=== PATIENT | male | born 1930 | race Two or more races ===

== ENCOUNTER 2017-04-19 16:58 | Inpatient (IN) | payer MEDICARE ==
[2017-04-19 18:25] LABS: AUTOMATED NEUTROPHIL # 5.1 TH/MM3 (1.8-7.7); BASOPHIL % 0.3 % (0.0-2.0); HEMATOCRIT 35.4 % (39.0-51.0); HEMOGLOBIN 12.8 GM/DL (13.0-17.0); LYMPH % 2.2 % (9.0-44.0); LYMPHOCYTE # 0.1 TH/MM3 (1.0-4.8); MEAN CELL VOLUME 90.8 FL (80.0-100.0); MEAN CORPUSCULAR HEMOGLOBIN 32.8 PG (27.0-34.0); MEAN PLATELET VOLUME 7.4 FL (7.0-11.0); MONO % 9.3 % (0.0-8.0); MONOCYTE # 0.5 TH/MM3 (0-0.9); NEUT % 88.2 % (16.0-70.0); PLATELET COUNT 243 TH/MM3 (150-450); RED CELL DISTRIBUTION WIDTH 12.8 % (11.6-17.2); WHITE BLOOD COUNT 5.7 TH/MM3 (4.0-11.0)
[2017-04-19 18:29] LABS: ANION GAP 8 MEQ/L (5-15); BICARBONATE 25.8 MEQ/L (21.0-32.0); BLOOD UREA NITROGEN 13 MG/DL (7-18); CHLORIDE 92 MEQ/L (98-107); CREATININE 0.94 MG/DL (0.60-1.30); GLOMERULAR FILTRATION RATE 76 ML/MIN (>89); GLUCOSE,RANDOM 154 MG/DL (74-106); POTASSIUM 3.8 MEQ/L (3.5-5.1); SODIUM (NA) 126 MEQ/L (136-145)
[2017-04-19 18:36] LABS: HEMO FLAGS AUTO DIFF; MEAN CORPUSCULAR HGB CONC 36.2 % (32.0-36.0)
[2017-04-19 18:39] LABS: AMORPHOUS SEDIMENT, URINE RARE; BILIRUBIN, URINE NEG (NEG); BLOOD, URINE SMALL (NEG); COMMENT (UR) CULT NOT INDICATED; CULTURE IF INDICATED CULT NOT INDICATED; GLUCOSE,URINE NEG (NEG); KETONE, URINE 40 mg/dL (NEG); MUCUS URINE FEW /lpf (OCC); NITRITE,URINE NEG (NEG); PH, URINE 5.5 (5.0-8.5); URINE COLOR YELLOW (YELLW/STRAW); URINE LEUKOCYTE ESTERASE NEG (NEG)
[2017-04-19] MEDS: SODIUM CHLOR 0.9% 1000 ML INJ 1,000 ML IV (18:43)
[2017-04-19] MEDS: MORPHINE SULFATE 2 MG/ML INJ IV PUSH (18:43)
[2017-04-19 19:08] LABS: BANDS 15 % (0-6); LYMPHOCYTES 4 % (9-44); MONOCYTES 8 % (0-8); POLYS (SEG NEUTROPHILS) 72 % (16-70); PROMYELOCYTES 1 % (0-0); WBC DIFF SAMPLE 100
[2017-04-19 19:09] LABS: PLATELET ESTIMATE SMEAR NORMAL (NORMAL); PLATELET MORPHOLOGY NORMAL (NORMAL); SCAN/DIFF FINAL DIFF MANUAL
[2017-04-19] MEDS: OXYBUTYNIN CHLORIDE 5 MG TAB PO (19:10)
[2017-04-19] MEDS ORDERED: NALOXONE HCL 0.4 MG/ML AMP IV PUSH (20:00)
[2017-04-19] MEDS ORDERED: ACETAMINOPHEN 325 MG TAB PO (20:00)
[2017-04-19] MEDS ORDERED: SODIUM CHLORIDE 0.9% FLUSH 10 ML FLUSH IV FLUSH (20:00)
[2017-04-19] MEDS ORDERED: SENNOSIDES 8.6 MG TAB PO (20:00)
[2017-04-19] MEDS ORDERED: MAGNESIUM HYDROXIDE SUSP 30 ML CUP PO (20:00)
[2017-04-19] MEDS ORDERED: LACTULOSE SYRUP 20 GM/30 ML CUP PO (20:00)
[2017-04-19] MEDS ORDERED: BISACODYL 10 MG SUPP RECTAL (20:00)
[2017-04-19] MEDS: LISINOPRIL 10 MG TAB PO (20:05)
[2017-04-19] MEDS: FINASTERIDE 5 MG TAB PO (20:05)
[2017-04-19] MEDS ORDERED: 3% SALINE INJ 100 ML IV (20:30)
[2017-04-19] MEDS: SODIUM CHLORIDE 0.9% FLUSH 10 ML FLUSH IV FLUSH (20:58)
[2017-04-19] MEDS: ENOXAPARIN SODIUM 40 MG/0.4 ML SYRINGE SQ (20:58)
[2017-04-19] MEDS: TAMSULOSIN HCL 0.4 MG CAP PO (20:58)
[2017-04-19] MEDS: DOCUSATE SODIUM 50 MG/SENNA 8.6 MG TAB PO (20:59)
[2017-04-19 21:41] LABS: ANION GAP 11 MEQ/L (5-15); BICARBONATE 23.1 MEQ/L (21.0-32.0); BLOOD UREA NITROGEN 11 MG/DL (7-18); CALCIUM 7.5 MG/DL (8.5-10.1); CHLORIDE 95 MEQ/L (98-107); CREATININE 0.86 MG/DL (0.60-1.30); GLOMERULAR FILTRATION RATE 85 ML/MIN (>89); GLUCOSE,RANDOM 108 MG/DL (74-106); POTASSIUM 3.6 MEQ/L (3.5-5.1); SODIUM (NA) 129 MEQ/L (136-145)
[2017-04-19] MEDS ORDERED: ONDANSETRON HCL 4 MG/2 ML VIAL IV PUSH (23:00)
[2017-04-20 01:43] LABS: ANION GAP 9 MEQ/L (5-15); BICARBONATE 21.6 MEQ/L (21.0-32.0); BLOOD UREA NITROGEN 10 MG/DL (7-18); CALCIUM 7.2 MG/DL (8.5-10.1); CHLORIDE 96 MEQ/L (98-107); CREATININE 0.68 MG/DL (0.60-1.30); GLOMERULAR FILTRATION RATE 111 ML/MIN (>89); GLUCOSE,RANDOM 134 MG/DL (74-106); POTASSIUM 3.3 MEQ/L (3.5-5.1); SODIUM (NA) 127 MEQ/L (136-145)
[2017-04-20 02:10] LABS: CALCIUM-PROTEIN CORRECTED 7.8 MG/DL (8.5-10.1); TOTAL PROTEIN 5.9 GM/DL (6.4-8.2)
[2017-04-20 03:59] LABS: AUTOMATED NEUTROPHIL # 3.6 TH/MM3 (1.8-7.7); BASOPHIL % 0.2 % (0.0-2.0); HEMATOCRIT 33.2 % (39.0-51.0); HEMOGLOBIN 12.4 GM/DL (13.0-17.0); LYMPH % 8.2 % (9.0-44.0); LYMPHOCYTE # 0.4 TH/MM3 (1.0-4.8); MEAN CORPUSCULAR HEMOGLOBIN 33.6 PG (27.0-34.0); MEAN PLATELET VOLUME 7.5 FL (7.0-11.0); MONO % 8.3 % (0.0-8.0); MONOCYTE # 0.4 TH/MM3 (0-0.9); NEUT % 83.3 % (16.0-70.0); PLATELET COUNT 239 TH/MM3 (150-450); RED BLOOD COUNT 3.69 MIL/MM3 (4.50-5.90); RED CELL DISTRIBUTION WIDTH 12.6 % (11.6-17.2); WHITE BLOOD COUNT 4.3 TH/MM3 (4.0-11.0)
[2017-04-20 04:05] LABS: HEMO FLAGS AUTO DIFF; MEAN CORPUSCULAR HGB CONC 37.4 % (32.0-36.0)
[2017-04-20 04:16] LABS: ANION GAP 11 MEQ/L (5-15); BICARBONATE 22.3 MEQ/L (21.0-32.0); BLOOD UREA NITROGEN 10 MG/DL (7-18); CALCIUM 7.5 MG/DL (8.5-10.1); CHLORIDE 95 MEQ/L (98-107); CREATININE 0.81 MG/DL (0.60-1.30); GLOMERULAR FILTRATION RATE 91 ML/MIN (>89); GLUCOSE,RANDOM 122 MG/DL (74-106); POTASSIUM 3.3 MEQ/L (3.5-5.1); SODIUM (NA) 128 MEQ/L (136-145)
[2017-04-20 06:58] LABS: BANDS 20 % (0-6); LYMPHOCYTES 7 % (9-44); MONOCYTES 8 % (0-8); NEUTROPHIL # MANUAL DIFF 3.6 TH/MM3 (1.8-7.7); PLASMA CELLS 1 % (0-0); PLATELET ESTIMATE SMEAR NORMAL (NORMAL); PLATELET MORPHOLOGY NORMAL (NORMAL); POLYS (SEG NEUTROPHILS) 64 % (16-70); SCAN/DIFF FINAL DIFF MANUAL; WBC DIFF SAMPLE 100
[2017-04-20 07:33] LABS: ANION GAP 10 MEQ/L (5-15); BLOOD UREA NITROGEN 11 MG/DL (7-18); CALCIUM 7.7 MG/DL (8.5-10.1); CHLORIDE 95 MEQ/L (98-107); CREATININE 0.83 MG/DL (0.60-1.30); GLOMERULAR FILTRATION RATE 88 ML/MIN (>89); GLUCOSE,RANDOM 112 MG/DL (74-106); POTASSIUM 3.4 MEQ/L (3.5-5.1); SODIUM (NA) 127 MEQ/L (136-145)
[2017-04-20] MEDS: LEVOTHYROXINE SODIUM 25 MCG TAB PO (08:54)
[2017-04-20] MEDS: FINASTERIDE 5 MG TAB PO (08:56)
[2017-04-20] MEDS: DOCUSATE SODIUM 50 MG/SENNA 8.6 MG TAB PO ×2 (08:56→21:39)
[2017-04-20] MEDS: LISINOPRIL 10 MG TAB PO (08:56)
[2017-04-20] MEDS: SODIUM CHLORIDE 0.9% FLUSH 10 ML FLUSH IV FLUSH ×2 (08:56→21:00)
[2017-04-20 10:43] LABS: SODIUM,RANDOM URINE 26 MEQ/L
[2017-04-20 10:46] LABS: OSMOLALITY,URINE 506 MOSM/KG (300-1300)
[2017-04-20] MEDS: RESP: ALBUTEROL 2.5 MG/IPRATROPIUM 0.5 MG NEB (SCH) NEB ×3 (11:30→22:48)
[2017-04-20] MEDS: AZITHROMYCIN 250 MG TAB PO (11:44)
[2017-04-20] MEDS: BENZONATATE 100 MG CAP PO (11:44)
[2017-04-20 12:12] LABS: OSMOLALITY,SERUM 263 MOSM/KG (275-295)
[2017-04-20 12:16] LABS: ANION GAP 10 MEQ/L (5-15); BICARBONATE 21.8 MEQ/L (21.0-32.0); BLOOD UREA NITROGEN 12 MG/DL (7-18); CALCIUM 7.9 MG/DL (8.5-10.1); CHLORIDE 94 MEQ/L (98-107); GLOMERULAR FILTRATION RATE 92 ML/MIN (>89); GLUCOSE,RANDOM 126 MG/DL (74-106); POTASSIUM 3.2 MEQ/L (3.5-5.1); SODIUM (NA) 126 MEQ/L (136-145)
[2017-04-20] MEDS: NS + KCL 40 MEQ INJ 1,000 ML IV (17:45)
[2017-04-20 18:38] LABS: ANION GAP 10 MEQ/L (5-15); BICARBONATE 21.6 MEQ/L (21.0-32.0); BLOOD UREA NITROGEN 16 MG/DL (7-18); CALCIUM 7.8 MG/DL (8.5-10.1); CHLORIDE 93 MEQ/L (98-107); CREATININE 0.78 MG/DL (0.60-1.30); GLOMERULAR FILTRATION RATE 95 ML/MIN (>89); GLUCOSE,RANDOM 143 MG/DL (74-106); POTASSIUM 3.2 MEQ/L (3.5-5.1); SODIUM (NA) 125 MEQ/L (136-145)
[2017-04-20] MEDS: TAMSULOSIN HCL 0.4 MG CAP PO (21:38)
[2017-04-20] MEDS: ENOXAPARIN SODIUM 40 MG/0.4 ML SYRINGE SQ (21:38)
[2017-04-20 23:57] LABS: ANION GAP 11 MEQ/L (5-15); BICARBONATE 21.7 MEQ/L (21.0-32.0); BLOOD UREA NITROGEN 16 MG/DL (7-18); CALCIUM 7.8 MG/DL (8.5-10.1); CHLORIDE 93 MEQ/L (98-107); CREATININE 0.74 MG/DL (0.60-1.30); GLOMERULAR FILTRATION RATE 101 ML/MIN (>89); GLUCOSE,RANDOM 163 MG/DL (74-106); POTASSIUM 3.4 MEQ/L (3.5-5.1); SODIUM (NA) 126 MEQ/L (136-145)
[2017-04-21] MEDS: RESP: ALBUTEROL 2.5 MG/IPRATROPIUM 0.5 MG NEB (SCH) NEB ×4 (02:59→21:08)
[2017-04-21 04:11] LABS: ANION GAP 10 MEQ/L (5-15); BICARBONATE 20.7 MEQ/L (21.0-32.0); BLOOD UREA NITROGEN 14 MG/DL (7-18); CALCIUM 7.8 MG/DL (8.5-10.1); CHLORIDE 97 MEQ/L (98-107); CREATININE 0.66 MG/DL (0.60-1.30); GLOMERULAR FILTRATION RATE 115 ML/MIN (>89); GLUCOSE,RANDOM 147 MG/DL (74-106); POTASSIUM 3.6 MEQ/L (3.5-5.1); SODIUM (NA) 128 MEQ/L (136-145)
[2017-04-21] MEDS: LEVOTHYROXINE SODIUM 25 MCG TAB PO (06:11)
[2017-04-21] MEDS: NS + KCL 40 MEQ INJ 1,000 ML IV ×2 (06:13→20:48)
[2017-04-21] MEDS: AZITHROMYCIN 250 MG TAB PO (09:49)
[2017-04-21] MEDS: FINASTERIDE 5 MG TAB PO (09:49)
[2017-04-21] MEDS: LISINOPRIL 10 MG TAB PO (09:49)
[2017-04-21] MEDS: DOCUSATE SODIUM 50 MG/SENNA 8.6 MG TAB PO ×2 (09:50→20:49)
[2017-04-21] MEDS: PNEUMOCOCCAL POLYVALENT INJ 25 MCG/0.5 ML SYR IM (10:45)
[2017-04-21 12:32] LABS: ANION GAP 10 MEQ/L (5-15); BICARBONATE 20.5 MEQ/L (21.0-32.0); BLOOD UREA NITROGEN 11 MG/DL (7-18); CALCIUM 8.1 MG/DL (8.5-10.1); CHLORIDE 95 MEQ/L (98-107); CREATININE 0.65 MG/DL (0.60-1.30); GLOMERULAR FILTRATION RATE 117 ML/MIN (>89); GLUCOSE,RANDOM 185 MG/DL (74-106); POTASSIUM 3.6 MEQ/L (3.5-5.1); SODIUM (NA) 125 MEQ/L (136-145)
[2017-04-21 15:30] LABS: BASOPHIL % 0.2 % (0.0-2.0); HEMATOCRIT 34.4 % (39.0-51.0); LYMPH % 5.3 % (9.0-44.0); LYMPHOCYTE # 0.2 TH/MM3 (1.0-4.8); MEAN CELL VOLUME 91.3 FL (80.0-100.0); MEAN CORPUSCULAR HEMOGLOBIN 31.8 PG (27.0-34.0); MEAN CORPUSCULAR HGB CONC 34.8 % (32.0-36.0); MEAN PLATELET VOLUME 7.6 FL (7.0-11.0); MONO % 7.3 % (0.0-8.0); MONOCYTE # 0.3 TH/MM3 (0-0.9); NEUT % 87.2 % (16.0-70.0); PLATELET COUNT 256 TH/MM3 (150-450); RED BLOOD COUNT 3.76 MIL/MM3 (4.50-5.90); RED CELL DISTRIBUTION WIDTH 12.8 % (11.6-17.2); WHITE BLOOD COUNT 3.5 TH/MM3 (4.0-11.0)
[2017-04-21 15:33] LABS: HEMO FLAGS AUTO DIFF
[2017-04-21 15:39] LABS: ANION GAP 9 MEQ/L (5-15); BLOOD UREA NITROGEN 11 MG/DL (7-18); CALCIUM 7.6 MG/DL (8.5-10.1); CHLORIDE 96 MEQ/L (98-107); CREATININE 0.67 MG/DL (0.60-1.30); GLOMERULAR FILTRATION RATE 113 ML/MIN (>89); GLUCOSE,RANDOM 197 MG/DL (74-106); POTASSIUM 3.9 MEQ/L (3.5-5.1); SODIUM (NA) 126 MEQ/L (136-145)
[2017-04-21 16:15] LABS: BANDS 21 % (0-6); LYMPHOCYTES 4 % (9-44); METAMYELOCYTES 3 % (0-1); MONOCYTES 9 % (0-8); MYELOCYTES 1 % (0-0); POLYS (SEG NEUTROPHILS) 62 % (16-70); WBC DIFF SAMPLE 100
[2017-04-21 16:16] LABS: SCAN/DIFF FINAL DIFF MANUAL
[2017-04-21 16:18] LABS: PLATELET ESTIMATE SMEAR NORMAL (NORMAL); PLATELET MORPHOLOGY NORMAL (NORMAL)
[2017-04-21] MEDS: TAMSULOSIN HCL 0.4 MG CAP PO (20:48)
[2017-04-21] MEDS: ENOXAPARIN SODIUM 40 MG/0.4 ML SYRINGE SQ (20:49)
[2017-04-21] MEDS: SODIUM CHLORIDE 0.9% FLUSH 10 ML FLUSH IV FLUSH (20:49)
[2017-04-21 21:41] LABS: ANION GAP 8 MEQ/L (5-15); BLOOD UREA NITROGEN 15 MG/DL (7-18); CALCIUM 7.8 MG/DL (8.5-10.1); CHLORIDE 96 MEQ/L (98-107); CREATININE 0.81 MG/DL (0.60-1.30); GLOMERULAR FILTRATION RATE 91 ML/MIN (>89); GLUCOSE,RANDOM 157 MG/DL (74-106); POTASSIUM 3.8 MEQ/L (3.5-5.1); SODIUM (NA) 125 MEQ/L (136-145)
[2017-04-22 01:17] LABS: ANION GAP 9 MEQ/L (5-15); BICARBONATE 20.7 MEQ/L (21.0-32.0); BLOOD UREA NITROGEN 13 MG/DL (7-18); CALCIUM 7.5 MG/DL (8.5-10.1); CHLORIDE 97 MEQ/L (98-107); CREATININE 0.63 MG/DL (0.60-1.30); GLOMERULAR FILTRATION RATE 121 ML/MIN (>89); GLUCOSE,RANDOM 155 MG/DL (74-106); POTASSIUM 3.7 MEQ/L (3.5-5.1); SODIUM (NA) 127 MEQ/L (136-145)
[2017-04-22 03:32] LABS: AUTOMATED NEUTROPHIL # 3.5 TH/MM3 (1.8-7.7); BASOPHIL % 0.2 % (0.0-2.0); EOSINOPHIL % 0.1 % (0.0-4.0); HEMATOCRIT 32.8 % (39.0-51.0); HEMO FLAGS AUTO DIFF; HEMOGLOBIN 11.4 GM/DL (13.0-17.0); LYMPH % 4.9 % (9.0-44.0); LYMPHOCYTE # 0.2 TH/MM3 (1.0-4.8); MEAN CELL VOLUME 90.9 FL (80.0-100.0); MEAN CORPUSCULAR HEMOGLOBIN 31.5 PG (27.0-34.0); MEAN CORPUSCULAR HGB CONC 34.7 % (32.0-36.0); MEAN PLATELET VOLUME 7.2 FL (7.0-11.0); MONO % 9.1 % (0.0-8.0); MONOCYTE # 0.4 TH/MM3 (0-0.9); NEUT % 85.7 % (16.0-70.0); PLATELET COUNT 269 TH/MM3 (150-450); RED BLOOD COUNT 3.61 MIL/MM3 (4.50-5.90); RED CELL DISTRIBUTION WIDTH 12.7 % (11.6-17.2); WHITE BLOOD COUNT 4.1 TH/MM3 (4.0-11.0)
[2017-04-22] MEDS: RESP: ALBUTEROL 2.5 MG/IPRATROPIUM 0.5 MG NEB (SCH) NEB ×4 (03:43→19:58)
[2017-04-22 03:48] LABS: ANION GAP 11 MEQ/L (5-15); BICARBONATE 20.5 MEQ/L (21.0-32.0); BLOOD UREA NITROGEN 12 MG/DL (7-18); CALCIUM 7.6 MG/DL (8.5-10.1); CHLORIDE 96 MEQ/L (98-107); CREATININE 0.56 MG/DL (0.60-1.30); GLOMERULAR FILTRATION RATE 139 ML/MIN (>89); GLUCOSE,RANDOM 146 MG/DL (74-106); POTASSIUM 3.9 MEQ/L (3.5-5.1); SODIUM (NA) 127 MEQ/L (136-145)
[2017-04-22 04:49] LABS: BANDS 35 % (0-6); LYMPHOCYTES 7 % (9-44); METAMYELOCYTES 5 % (0-1); MONOCYTES 7 % (0-8); NEUTROPHIL # MANUAL DIFF 3.5 TH/MM3 (1.8-7.7); POLYS (SEG NEUTROPHILS) 46 % (16-70); WBC DIFF SAMPLE 100
[2017-04-22 04:50] LABS: PLATELET ESTIMATE SMEAR NORMAL (NORMAL); PLATELET MORPHOLOGY NORMAL (NORMAL); SCAN/DIFF FINAL DIFF MANUAL
[2017-04-22] MEDS: LEVOTHYROXINE SODIUM 25 MCG TAB PO (06:03)
[2017-04-22] MEDS: DOCUSATE SODIUM 50 MG/SENNA 8.6 MG TAB PO ×2 (09:00→20:16)
[2017-04-22] MEDS ORDERED: cefTRIAXone INJ 1,000 MG in SODIUM CHLORIDE 0.9% INJ 100 ML IV (10:00)
[2017-04-22] MEDS ORDERED: Vancomycin Consult Pharmacy 1 EA OTHER (11:00)
[2017-04-22] MEDS: SODIUM CHLORIDE 0.9% FLUSH 10 ML FLUSH IV FLUSH ×2 (11:23→20:16)
[2017-04-22] MEDS: BUDESONIDE-FORMOTEROL 80/4.5 MCG INHALER INH (11:24)
[2017-04-22] MEDS: FINASTERIDE 5 MG TAB PO (11:24)
[2017-04-22] MEDS: LISINOPRIL 10 MG TAB PO (11:24)
[2017-04-22] MEDS: AZITHROMYCIN INJ 500 MG in SODIUM CHLOR 0.9% 250 ML INJ 250 ML IV (11:26)
[2017-04-22] MEDS: PIPERACIL-TAZO 4.5 GM PREMIX 100 ML IV ×3 (12:48→23:55)
[2017-04-22] MEDS: VANCOMYCIN INJ 1,000 MG in SODIUM CHLOR 0.9% 250 ML INJ 250 ML IV (13:21)
[2017-04-22] MEDS: MEGESTROL ACETATE 40 MG TAB PO (13:21)
[2017-04-22 13:43] LABS: CREATININE, RANDOM URINE 115.1 MG/DL
[2017-04-22] MEDS: guaiFENesin E.R. 600 MG TAB PO (20:16)
[2017-04-22] MEDS: VANCOMYCIN 1,500 MG/NS 500 ML IV (20:16)
[2017-04-22] MEDS: ENOXAPARIN SODIUM 40 MG/0.4 ML SYRINGE SQ (20:16)
[2017-04-22] MEDS: TAMSULOSIN HCL 0.4 MG CAP PO (20:16)
[2017-04-23] MEDS: RESP: ALBUTEROL 2.5 MG/IPRATROPIUM 0.5 MG NEB (SCH) NEB ×7 (00:11→23:45)
[2017-04-23] MEDS: PIPERACIL-TAZO 4.5 GM PREMIX 100 ML IV ×4 (05:58→23:01)
[2017-04-23] MEDS: LEVOTHYROXINE SODIUM 25 MCG TAB PO (05:59)
[2017-04-23 07:58] LABS: AUTOMATED NEUTROPHIL # 4.5 TH/MM3 (1.8-7.7); BASOPHIL % 0.2 % (0.0-2.0); HEMATOCRIT 31.8 % (39.0-51.0); HEMOGLOBIN 11.4 GM/DL (13.0-17.0); LYMPHOCYTE # 0.2 TH/MM3 (1.0-4.8); MEAN CELL VOLUME 90.3 FL (80.0-100.0); MEAN CORPUSCULAR HEMOGLOBIN 32.4 PG (27.0-34.0); MEAN CORPUSCULAR HGB CONC 35.9 % (32.0-36.0); MEAN PLATELET VOLUME 7.2 FL (7.0-11.0); MONO % 11.8 % (0.0-8.0); MONOCYTE # 0.6 TH/MM3 (0-0.9); PLATELET COUNT 336 TH/MM3 (150-450); RED BLOOD COUNT 3.53 MIL/MM3 (4.50-5.90); RED CELL DISTRIBUTION WIDTH 12.6 % (11.6-17.2); WHITE BLOOD COUNT 5.3 TH/MM3 (4.0-11.0)
[2017-04-23] MEDS ORDERED: GLUCAGON 1 MG/ML VIAL OTHER (08:00)
[2017-04-23] MEDS ORDERED: DEXTROSE 50% IN WATER 50 ML VIAL(D50) IV PUSH (08:00)
[2017-04-23] MEDS: INSULIN ASPART SUPPLEMENTAL SCALE SQ ×4 (08:00→21:00)
[2017-04-23 08:07] LABS: HEMO FLAGS AUTO DIFF
[2017-04-23 08:14] LABS: ANION GAP 9 MEQ/L (5-15); BICARBONATE 22.1 MEQ/L (21.0-32.0); BLOOD UREA NITROGEN 9 MG/DL (7-18); CALCIUM 7.8 MG/DL (8.5-10.1); CHLORIDE 94 MEQ/L (98-107); CREATININE 0.52 MG/DL (0.60-1.30); GLOMERULAR FILTRATION RATE 151 ML/MIN (>89); GLUCOSE,RANDOM 159 MG/DL (74-106); POTASSIUM 3.5 MEQ/L (3.5-5.1); SODIUM (NA) 125 MEQ/L (136-145)
[2017-04-23] MEDS: guaiFENesin E.R. 600 MG TAB PO ×2 (08:27→20:11)
[2017-04-23] MEDS: LISINOPRIL 10 MG TAB PO (08:28)
[2017-04-23] MEDS: FINASTERIDE 5 MG TAB PO (08:28)
[2017-04-23] MEDS: DOCUSATE SODIUM 50 MG/SENNA 8.6 MG TAB PO ×2 (08:28→20:11)
[2017-04-23] MEDS: SODIUM CHLORIDE 0.9% FLUSH 10 ML FLUSH IV FLUSH ×2 (08:33→21:00)
[2017-04-23 08:51] LABS: BANDS 5 % (0-6); LYMPHOCYTES 4 % (9-44); METAMYELOCYTES 1 % (0-1); MONOCYTES 10 % (0-8); NEUTROPHIL # MANUAL DIFF 4.6 TH/MM3 (1.8-7.7); POLYS (SEG NEUTROPHILS) 80 % (16-70); WBC DIFF SAMPLE 100
[2017-04-23 08:52] LABS: PLATELET ESTIMATE SMEAR NORMAL (NORMAL); PLATELET MORPHOLOGY NORMAL (NORMAL); SCAN/DIFF FINAL DIFF MANUAL
[2017-04-23 08:53] LABS: CRENATED RBCS 1+ (NORMAL)
[2017-04-23] MEDS: VANCOMYCIN 1,500 MG/NS 500 ML IV ×2 (10:11→21:00)
[2017-04-23] MEDS: SODIUM CHLOR 0.9% 1000 ML INJ 1,000 ML IV ×2 (10:11→20:00)
[2017-04-23] MEDS: BUDESONIDE-FORMOTEROL 80/4.5 MCG INHALER INH (11:22)
[2017-04-23] MEDS: MEGESTROL ACETATE 40 MG TAB PO (11:22)
[2017-04-23] MEDS: AZITHROMYCIN INJ 500 MG in SODIUM CHLOR 0.9% 250 ML INJ 250 ML IV (11:22)
[2017-04-23 18:04] LABS: BLOOD GAS BASE EXCESS -4.6 mmol/L (-2-2); BLOOD GAS CARBOXYHEMOGLOBIN 1.1 % (0-4); BLOOD GAS HCO3 20 mmol/L (22-26); BLOOD GAS O2 HGB SATURATION 92 % (90-100); BLOOD GAS OXYGEN CONTENT 15.2 Vol % (12.0-20.0); BLOOD GAS PCO2 34 mmHg (38-42); BLOOD GAS PO2 67 mmHg (61-120); BLOOD GAS TOTAL HGB 11.7 G/DL (12.0-16.0); TEMP CORR TO 98.6
[2017-04-23 18:05] LABS: CRITICAL VALUE NO; DRAW SITE RT BRACHIAL; LITER FLOW 3 L/M; NUMBER OF ARTERIAL PUNCTURES 1; OXYGEN DEVICE NASAL CANNULA; STAT NO; ULNAR PULSE PRESENT
[2017-04-23] MEDS: FUROSEMIDE 40 MG/4 ML VIAL IV PUSH (19:55)
[2017-04-23] MEDS: TAMSULOSIN HCL 0.4 MG CAP PO (20:11)
[2017-04-23] MEDS: ENOXAPARIN SODIUM 40 MG/0.4 ML SYRINGE SQ (20:12)
[2017-04-23 20:54] LABS: ANION GAP 10 MEQ/L (5-15); BICARBONATE 20.7 MEQ/L (21.0-32.0); BLOOD UREA NITROGEN 8 MG/DL (7-18); CALCIUM 7.6 MG/DL (8.5-10.1); CHLORIDE 92 MEQ/L (98-107); CREATININE 0.61 MG/DL (0.60-1.30); GLOMERULAR FILTRATION RATE 126 ML/MIN (>89); GLUCOSE,RANDOM 160 MG/DL (74-106); POTASSIUM 3.6 MEQ/L (3.5-5.1)
[2017-04-23 20:57] LABS: SODIUM (NA) 123 MEQ/L (136-145)
[2017-04-23 20:57] LABS: TROPONIN I LESS THAN 0.02 NG/ML (0.02-0.05)
[2017-04-24] MEDS: RESP: ALBUTEROL 2.5 MG/IPRATROPIUM 0.5 MG NEB (SCH) NEB ×5 (03:39→20:33)
[2017-04-24] MEDS: hydrALAZINE HCL 20 MG/ML VIAL IV PUSH (03:43)
[2017-04-24] MEDS ORDERED: LABETALOL HCL 100 MG/20 ML VIAL IV PUSH ×2 (03:45→07:15)
[2017-04-24] MEDS: SODIUM CHLOR 0.9% 1000 ML INJ 1,000 ML IV (05:30)
[2017-04-24] MEDS: PIPERACIL-TAZO 4.5 GM PREMIX 100 ML IV ×4 (05:33→23:00)
[2017-04-24] MEDS: LEVOTHYROXINE SODIUM 25 MCG TAB PO (05:33)
[2017-04-24 05:54] LABS: BLOOD GAS BASE EXCESS -4.8 mmol/L (-2-2); BLOOD GAS CARBOXYHEMOGLOBIN 1.1 % (0-4); BLOOD GAS HCO3 18 mmol/L (22-26); BLOOD GAS METHEMOGLOBIN 0.8 % (0-2); BLOOD GAS O2 HGB SATURATION 95 % (90-100); BLOOD GAS OXYGEN CONTENT 15.9 Vol % (12.0-20.0); BLOOD GAS PCO2 24 mmHg (38-42); BLOOD GAS PO2 79 mmHg (61-120); BLOOD GAS TOTAL HGB 11.9 G/DL (12.0-16.0); CRITICAL VALUE YES; DRAW SITE RT BRACHIAL; LITER FLOW 15 L/M; NUMBER OF ARTERIAL PUNCTURES 2; STAT NO; TEMP CORR TO 98.6
[2017-04-24 05:55] LABS: MRSA PCR SURVEILLANCE MRSA NOT DETECTED (NOT DETECT)
[2017-04-24 06:07] LABS: AUTOMATED NEUTROPHIL # 8.4 TH/MM3 (1.8-7.7); BASOPHIL % 0.2 % (0.0-2.0); HEMATOCRIT 35.7 % (39.0-51.0); HEMOGLOBIN 12.5 GM/DL (13.0-17.0); LYMPH % 1.6 % (9.0-44.0); LYMPHOCYTE # 0.1 TH/MM3 (1.0-4.8); MEAN CELL VOLUME 89.6 FL (80.0-100.0); MEAN CORPUSCULAR HEMOGLOBIN 31.4 PG (27.0-34.0); MEAN PLATELET VOLUME 7.2 FL (7.0-11.0); MONO % 7.1 % (0.0-8.0); MONOCYTE # 0.7 TH/MM3 (0-0.9); NEUT % 91.1 % (16.0-70.0); PLATELET COUNT 433 TH/MM3 (150-450); RED BLOOD COUNT 3.98 MIL/MM3 (4.50-5.90); RED CELL DISTRIBUTION WIDTH 12.7 % (11.6-17.2); WHITE BLOOD COUNT 9.2 TH/MM3 (4.0-11.0)
[2017-04-24 06:18] LABS: HEMO FLAGS AUTO DIFF
[2017-04-24 07:00] LABS: ANION GAP 15 MEQ/L (5-15); BICARBONATE 19.2 MEQ/L (21.0-32.0); BLOOD UREA NITROGEN 9 MG/DL (7-18); CHLORIDE 93 MEQ/L (98-107); CREATININE 0.62 MG/DL (0.60-1.30); GLOMERULAR FILTRATION RATE 124 ML/MIN (>89); GLUCOSE,RANDOM 151 MG/DL (74-106); MAGNESIUM 1.9 MG/DL (1.5-2.5); PHOSPHORUS 1.6 MG/DL (2.5-4.9); SODIUM (NA) 127 MEQ/L (136-145)
[2017-04-24 07:21] LABS: POTASSIUM 2.8 MEQ/L (3.5-5.1)
[2017-04-24 07:27] LABS: BANDS 12 % (0-6); LYMPHOCYTES 9 % (9-44); METAMYELOCYTES 1 % (0-1); MONOCYTES 4 % (0-8); NEUTROPHIL # MANUAL DIFF 7.9 TH/MM3 (1.8-7.7); PLASMA CELLS 1 % (0-0); PLATELET ESTIMATE SMEAR NORMAL (NORMAL); PLATELET MORPHOLOGY NORMAL (NORMAL); POLYS (SEG NEUTROPHILS) 73 % (16-70); SCAN/DIFF FINAL DIFF MANUAL; WBC DIFF SAMPLE 100
[2017-04-24] MEDS ORDERED: PILL SPLITTER OTHER (07:30)
[2017-04-24] MEDS ORDERED: POTASSIUM CHLORIDE 25 MEQ EFFERVESCENT TAB PO (07:45)
[2017-04-24] MEDS ORDERED: SODIUM PHOSPHATE INJ 30 MMOL in SODIUM CHLOR 0.9% 250 ML INJ 240 ML IV (07:45)
[2017-04-24] MEDS ORDERED: POTASSIUM PHOSPHATE MONOBASIC 500 MG TAB PO/TUBE (07:45)
[2017-04-24] MEDS ORDERED: POTASSIUM PHOSPHATE MONOBASIC 500 MG TAB PO (07:45)
[2017-04-24] MEDS ORDERED: POTASSIUM CHLOR 40 MEQ PREMIX 100 ML IV ×2 (07:45)
[2017-04-24] MEDS ORDERED: MAGNESIUM SULFATE INJ 2 GM in SODIUM CHLORIDE 0.9% INJ 96 ML IV (07:45)
[2017-04-24] MEDS ORDERED: POTASSIUM CHLOR 20 MEQ PREMIX 100 ML IV ×2 (07:45)
[2017-04-24] MEDS ORDERED: MAGNESIUM OXIDE 400 MG TAB PO (07:45)
[2017-04-24] MEDS ORDERED: MAGNESIUM SULFATE INJ 4 GM in SODIUM CHLORIDE 0.9% INJ 92 ML IV (07:45)
[2017-04-24] MEDS: INSULIN ASPART SUPPLEMENTAL SCALE SQ ×5 (08:00→23:58)
[2017-04-24] MEDS: MAGNESIUM SULFATE 1 GM PREMIX 100 ML IV (08:12)
[2017-04-24] MEDS: POTASSIUM CHLOR 10 MEQ PREMIX 100 ML IV ×3 (08:12→10:57)
[2017-04-24] MEDS: POTASSIUM CHLORIDE 20 MEQ CONTROLLED RELEASE TAB PO (08:13)
[2017-04-24] MEDS: LISINOPRIL 10 MG TAB PO (08:13)
[2017-04-24] MEDS: FINASTERIDE 5 MG TAB PO (08:14)
[2017-04-24] MEDS: DOCUSATE SODIUM 50 MG/SENNA 8.6 MG TAB PO ×2 (08:14→21:08)
[2017-04-24] MEDS: POLYETHYLENE GLYCOL 17 GM PKG PO (08:14)
[2017-04-24] MEDS: guaiFENesin E.R. 600 MG TAB PO (08:14)
[2017-04-24] MEDS: SODIUM CHLORIDE 0.9% FLUSH 10 ML FLUSH IV FLUSH ×2 (08:14→21:00)
[2017-04-24] MEDS: FAMOTIDINE 20 MG TAB PO (08:14)
[2017-04-24] MEDS: MEGESTROL ACETATE 40 MG TAB PO (08:14)
[2017-04-24] MEDS: VANCOMYCIN 1,500 MG/NS 500 ML IV (08:14)
[2017-04-24] MEDS: POTASSIUM PHOSPHATE INJ 30 MMOL in SODIUM CHLOR 0.9% 250 ML INJ 250 ML IV (08:30)
[2017-04-24] MEDS: PHARMACY ORDERED LAB (08:45)
[2017-04-24] MEDS: BUDESONIDE-FORMOTEROL 80/4.5 MCG INHALER INH (09:00)
[2017-04-24 10:07] LABS: LACTIC ACID 0.9 mmol/L (0.4-2.0)
[2017-04-24] MEDS: ETOMIDATE 40 MG/20 ML VIAL IV PUSH (10:30)
[2017-04-24] MEDS: ROCURONIUM INJ 50 MG/5 ML VIAL IV (10:30)
[2017-04-24 10:46] LABS: OSMOLALITY,SERUM 272 MOSM/KG (275-295)
[2017-04-24] MEDS: PROPOFOL 1000 MG/100 ML INJ 100 ML IV (11:05)
[2017-04-24 11:30] LABS: CORTISOL 43.6 MCG/DL
[2017-04-24] MEDS: AZITHROMYCIN INJ 500 MG in SODIUM CHLOR 0.9% 250 ML INJ 250 ML IV (11:39)
[2017-04-24] MEDS: fentaNYL DRIP 250 ML IV (11:39)
[2017-04-24 12:55] LABS: BLOOD UREA NITROGEN 10 MG/DL (7-18); CALCIUM 7.5 MG/DL (8.5-10.1); CREATININE 0.51 MG/DL (0.60-1.30); GLOMERULAR FILTRATION RATE 155 ML/MIN (>89); GLUCOSE,RANDOM 172 MG/DL (74-106)
[2017-04-24 12:56] LABS: AMYLASE 28 U/L (25-115); ANION GAP 10 MEQ/L (5-15); BICARBONATE 22.4 MEQ/L (21.0-32.0); CHLORIDE 94 MEQ/L (98-107); LIPASE 117 U/L (73-393); MAGNESIUM 2.3 MG/DL (1.5-2.5); POTASSIUM 3.3 MEQ/L (3.5-5.1); SODIUM (NA) 126 MEQ/L (136-145)
[2017-04-24 13:03] LABS: BLOOD GAS BASE EXCESS -4.2 mmol/L (-2-2); BLOOD GAS CARBOXYHEMOGLOBIN 0.7 % (0-4); BLOOD GAS HCO3 20 mmol/L (22-26); BLOOD GAS O2 HGB SATURATION 98 % (90-100); BLOOD GAS PCO2 34 mmHg (38-42); BLOOD GAS PO2 342 mmHg (61-120); BLOOD GAS TOTAL HGB 13.2 G/DL (12.0-16.0); TEMP CORR TO 98.6
[2017-04-24 13:04] LABS: CRITICAL VALUE NO; FIO2 100 %; OXYGEN DEVICE VENTILATOR; VENT SETTINGS PRVC/AC
[2017-04-24 13:05] LABS: DRAW SITE RT BRACHIAL; NUMBER OF ARTERIAL PUNCTURES 1; STAT NO; ULNAR PULSE PRESENT
[2017-04-24] MEDS: ARTIFICIAL TEARS OPTH SOLN 15 ML BTL EACH EYE ×2 (14:00→21:08)
[2017-04-24] MEDS ORDERED: Vancomycin Consult Pharmacy 1 EA OTHER (14:15)
[2017-04-24 14:43] LABS: B-TYPE NATRIURETIC PEPTIDE 184 PG/ML (0-100)
[2017-04-24] MEDS: TOLVAPTAN 15 MG TAB PO (15:45)
[2017-04-24] MEDS: guaiFENesin SOLUTION 200 MG/10 ML CUP PO ×2 (17:31→21:08)
[2017-04-24 18:42] LABS: AMYLASE 27 U/L (25-115)
[2017-04-24 18:42] LABS: LIPASE 111 U/L (73-393)
[2017-04-24 18:44] LABS: AMMONIA 11 MCMOL/L (11-32)
[2017-04-24 18:49] LABS: LACTIC ACID 1.3 mmol/L (0.4-2.0)
[2017-04-24] MEDS: ENOXAPARIN SODIUM 40 MG/0.4 ML SYRINGE SQ (20:00)
[2017-04-24] MEDS: CHLORHEXIDINE 0.12% (ORAL KIT) 15 ML CUP MT (20:00)
[2017-04-24] MEDS: RESP: BUDESONIDE 0.5 MG/2 ML NEB NEB (20:33)
[2017-04-24] MEDS: TAMSULOSIN HCL 0.4 MG CAP PO ×2 (21:00)
[2017-04-25] MEDS: RESP: ALBUTEROL 2.5 MG/IPRATROPIUM 0.5 MG NEB (SCH) NEB ×7 (00:33→23:56)
[2017-04-25] MEDS: SODIUM CHLOR 0.9% 1000 ML INJ 2,000 ML IV (01:00)
[2017-04-25] MEDS: PROPOFOL 1000 MG/100 ML INJ 100 ML IV ×3 (01:48→17:52)
[2017-04-25] MEDS: INSULIN ASPART SUPPLEMENTAL SCALE SQ ×5 (04:00→20:00)
[2017-04-25] MEDS: PIPERACIL-TAZO 4.5 GM PREMIX 100 ML IV ×4 (04:30→23:00)
[2017-04-25] MEDS: ARTIFICIAL TEARS OPTH SOLN 15 ML BTL EACH EYE ×3 (06:00→22:00)
[2017-04-25] MEDS: LEVOTHYROXINE SODIUM 25 MCG TAB PO (06:28)
[2017-04-25] MEDS: guaiFENesin SOLUTION 200 MG/10 ML CUP PO ×3 (06:28→22:30)
[2017-04-25 07:36] LABS: AUTOMATED NEUTROPHIL # 5.3 TH/MM3 (1.8-7.7); BASOPHIL % 0.3 % (0.0-2.0); EOSINOPHIL % 0.1 % (0.0-4.0); HEMATOCRIT 30.2 % (39.0-51.0); HEMOGLOBIN 10.7 GM/DL (13.0-17.0); LYMPH % 5.4 % (9.0-44.0); LYMPHOCYTE # 0.3 TH/MM3 (1.0-4.8); MEAN CELL VOLUME 90.1 FL (80.0-100.0); MEAN CORPUSCULAR HEMOGLOBIN 31.9 PG (27.0-34.0); MEAN CORPUSCULAR HGB CONC 35.4 % (32.0-36.0); MONO % 8.1 % (0.0-8.0); MONOCYTE # 0.5 TH/MM3 (0-0.9); NEUT % 86.1 % (16.0-70.0); PLATELET COUNT 439 TH/MM3 (150-450); RED BLOOD COUNT 3.35 MIL/MM3 (4.50-5.90); RED CELL DISTRIBUTION WIDTH 13.4 % (11.6-17.2); WHITE BLOOD COUNT 6.2 TH/MM3 (4.0-11.0)
[2017-04-25 07:47] LABS: HEMO FLAGS AUTO DIFF
[2017-04-25] MEDS: CHLORHEXIDINE 0.12% (ORAL KIT) 15 ML CUP MT ×2 (08:00→20:00)
[2017-04-25 08:35] LABS: ALBUMIN 1.5 GM/DL (3.4-5.0); ALKALINE PHOSPHATASE 153 U/L (45-117); ALT (GPT) 36 U/L (12-78); ANION GAP 9 MEQ/L (5-15); AST (GOT) 25 U/L (15-37); BICARBONATE 22.4 MEQ/L (21.0-32.0); BLOOD UREA NITROGEN 10 MG/DL (7-18); CALCIUM 7.4 MG/DL (8.5-10.1); CALCIUM-PROTEIN CORRECTED 8.5 MG/DL (8.5-10.1); CHLORIDE 108 MEQ/L (98-107); CHOLESTEROL 116 MG/DL (120-200); CHOLESTEROL/ HDL RATIO 3.91 RATIO; CREATININE 0.62 MG/DL (0.60-1.30); GLOMERULAR FILTRATION RATE 124 ML/MIN (>89); GLUCOSE,RANDOM 157 MG/DL (74-106); HDL CHOLESTEROL 29.6 MG/DL (40.0-60.0); LDL CHOLESTEROL 68 MG/DL (0-99); MAGNESIUM 2.5 MG/DL (1.5-2.5); PHOSPHORUS 1.8 MG/DL (2.5-4.9); POTASSIUM 3.3 MEQ/L (3.5-5.1); RANDOM VANCOMYCIN 15.5 COMMENT; SODIUM (NA) 139 MEQ/L (136-145); TOTAL PROTEIN 5.1 GM/DL (6.4-8.2); TRIGLYCERIDES 91 MG/DL (42-150)
[2017-04-25] MEDS: SODIUM CHLORIDE 0.9% FLUSH 10 ML FLUSH IV FLUSH ×2 (08:44→20:56)
[2017-04-25] MEDS: RESP: BUDESONIDE 0.5 MG/2 ML NEB NEB ×2 (08:47→19:49)
[2017-04-25] MEDS: MEGESTROL ACETATE 40 MG TAB PO (09:00)
[2017-04-25] MEDS: POLYETHYLENE GLYCOL 17 GM PKG PO (09:05)
[2017-04-25] MEDS: FINASTERIDE 5 MG TAB PO (09:05)
[2017-04-25] MEDS: LISINOPRIL 10 MG TAB PO (09:05)
[2017-04-25] MEDS: DOCUSATE SODIUM 50 MG/SENNA 8.6 MG TAB PO ×2 (09:05→20:55)
[2017-04-25] MEDS: LANSOPRAZOLE SOLUTAB 30 MG TAB NG (09:05)
[2017-04-25 09:14] LABS: BANDS 11 % (0-6); LYMPHOCYTES 7 % (9-44); METAMYELOCYTES 2 % (0-1); MONOCYTES 5 % (0-8); MYELOCYTES 2 % (0-0); NEUTROPHIL # MANUAL DIFF 5.4 TH/MM3 (1.8-7.7); PLASMA CELLS 1 % (0-0); POLYS (SEG NEUTROPHILS) 72 % (16-70); WBC DIFF SAMPLE 100
[2017-04-25 09:15] LABS: PLATELET ESTIMATE SMEAR HIGH (NORMAL); PLATELET MORPHOLOGY NORMAL (NORMAL); TOXIC GRANULATION 1+ (NORMAL)
[2017-04-25 09:16] LABS: SCAN/DIFF FINAL DIFF MANUAL; TOXIC VACUOLATION PRESENT (NONE SEEN)
[2017-04-25] MEDS: POTASSIUM PHOSPHATE INJ 30 MMOL in SODIUM CHLOR 0.9% 250 ML INJ 250 ML IV (09:34)
[2017-04-25] MEDS: AZITHROMYCIN INJ 500 MG in SODIUM CHLOR 0.9% 250 ML INJ 250 ML IV (09:43)
[2017-04-25] MEDS: VANCOMYCIN 1,500 MG/NS 500 ML IV (14:50)
[2017-04-25] MEDS: methylPREDNISolone SOD SUCC 40 MG/1 ML VIAL IV PUSH ×2 (16:17→20:55)
[2017-04-25] MEDS: ENOXAPARIN SODIUM 40 MG/0.4 ML SYRINGE SQ (20:55)
[2017-04-26] MEDS: INSULIN ASPART SUPPLEMENTAL SCALE SQ ×6 (00:34→20:04)
[2017-04-26] MEDS: PROPOFOL 1000 MG/100 ML INJ 100 ML IV ×2 (02:18→12:00)
[2017-04-26] MEDS: RESP: ALBUTEROL 2.5 MG/IPRATROPIUM 0.5 MG NEB (SCH) NEB ×4 (03:22→15:47)
[2017-04-26] MEDS: guaiFENesin SOLUTION 200 MG/10 ML CUP PO ×3 (05:20→21:20)
[2017-04-26] MEDS: PIPERACIL-TAZO 4.5 GM PREMIX 100 ML IV ×4 (05:20→23:14)
[2017-04-26] MEDS: ARTIFICIAL TEARS OPTH SOLN 15 ML BTL EACH EYE ×3 (05:21→21:20)
[2017-04-26] MEDS: LEVOTHYROXINE SODIUM 25 MCG TAB PO (05:21)
[2017-04-26 07:14] LABS: PREALBUMIN 6 MG/DL (20-40)
[2017-04-26 07:15] LABS: ANION GAP 5 MEQ/L (5-15); BICARBONATE 24.7 MEQ/L (21.0-32.0); BLOOD UREA NITROGEN 16 MG/DL (7-18); CHLORIDE 113 MEQ/L (98-107); CREATININE 0.71 MG/DL (0.60-1.30); GLOMERULAR FILTRATION RATE 106 ML/MIN (>89); GLUCOSE,RANDOM 258 MG/DL (74-106); POTASSIUM 4.1 MEQ/L (3.5-5.1); SODIUM (NA) 143 MEQ/L (136-145)
[2017-04-26] MEDS: RESP: BUDESONIDE 0.5 MG/2 ML NEB NEB ×2 (07:27→20:06)
[2017-04-26] MEDS: CHLORHEXIDINE 0.12% (ORAL KIT) 15 ML CUP MT ×2 (07:58→20:03)
[2017-04-26] MEDS: methylPREDNISolone SOD SUCC 40 MG/1 ML VIAL IV PUSH ×2 (07:59→21:19)
[2017-04-26] MEDS: LISINOPRIL 10 MG TAB PO (07:59)
[2017-04-26] MEDS: SODIUM CHLORIDE 0.9% FLUSH 10 ML FLUSH IV FLUSH ×2 (07:59→21:00)
[2017-04-26] MEDS: LANSOPRAZOLE SOLUTAB 30 MG TAB NG (07:59)
[2017-04-26] MEDS: FINASTERIDE 5 MG TAB PO (07:59)
[2017-04-26] MEDS: POLYETHYLENE GLYCOL 17 GM PKG PO (08:00)
[2017-04-26] MEDS: DOCUSATE SODIUM 50 MG/SENNA 8.6 MG TAB PO ×2 (08:00→21:00)
[2017-04-26] MEDS: MEGESTROL ACETATE 40 MG TAB PO (09:00)
[2017-04-26] MEDS: INSULIN DETEMIR 100 UNITS/ML VIAL SQ ×2 (10:49→21:20)
[2017-04-26] MEDS: AZITHROMYCIN INJ 500 MG in SODIUM CHLOR 0.9% 250 ML INJ 250 ML IV (10:52)
[2017-04-26 12:29] LABS: HEMATOCRIT 33.3 % (39.0-51.0); HEMOGLOBIN 11.8 GM/DL (13.0-17.0); MEAN CELL VOLUME 91.8 FL (80.0-100.0); MEAN CORPUSCULAR HEMOGLOBIN 32.5 PG (27.0-34.0); MEAN CORPUSCULAR HGB CONC 35.4 % (32.0-36.0); MEAN PLATELET VOLUME 7.5 FL (7.0-11.0); PLATELET COUNT 607 TH/MM3 (150-450); RED BLOOD COUNT 3.62 MIL/MM3 (4.50-5.90); RED CELL DISTRIBUTION WIDTH 13.3 % (11.6-17.2); WHITE BLOOD COUNT 9.9 TH/MM3 (4.0-11.0)
[2017-04-26 12:34] LABS: HEMO FLAGS AUTO DIFF
[2017-04-26 13:03] LABS: BANDS 6 % (0-6); LYMPHOCYTES 7 % (9-44); METAMYELOCYTES 2 % (0-1); MONOCYTES 2 % (0-8); MYELOCYTES 6 % (0-0); POLYS (SEG NEUTROPHILS) 77 % (16-70); WBC DIFF SAMPLE 100
[2017-04-26 13:05] LABS: PLATELET ESTIMATE SMEAR HIGH (NORMAL); PLATELET MORPHOLOGY NORMAL (NORMAL); TOXIC GRANULATION 2+ (NORMAL)
[2017-04-26 13:06] LABS: SCAN/DIFF FINAL DIFF MANUAL
[2017-04-26] MEDS: VANCOMYCIN 1,500 MG/NS 500 ML IV (14:51)
[2017-04-26] MEDS: ENOXAPARIN SODIUM 40 MG/0.4 ML SYRINGE SQ (20:03)
[2017-04-26] MEDS: RESP: ALBUTEROL 2.5 MG/3 ML NEB (PRN) NEB (20:06)
[2017-04-26] MEDS: TAMSULOSIN HCL 0.4 MG CAP PO (21:00)
[2017-04-27] MEDS: INSULIN ASPART SUPPLEMENTAL SCALE SQ ×6 (00:45→20:45)
[2017-04-27] MEDS: PROPOFOL 1000 MG/100 ML INJ 100 ML IV ×2 (02:15→19:37)
[2017-04-27] MEDS: PIPERACIL-TAZO 4.5 GM PREMIX 100 ML IV ×4 (04:11→23:23)
[2017-04-27] MEDS: ARTIFICIAL TEARS OPTH SOLN 15 ML BTL EACH EYE ×3 (05:22→20:45)
[2017-04-27] MEDS: guaiFENesin SOLUTION 200 MG/10 ML CUP PO ×3 (05:22→20:45)
[2017-04-27] MEDS: LEVOTHYROXINE SODIUM 25 MCG TAB PO (05:23)
[2017-04-27 05:40] LABS: AUTOMATED NEUTROPHIL # 7.9 TH/MM3 (1.8-7.7); BASOPHIL % 0.1 % (0.0-2.0); HEMATOCRIT 31.4 % (39.0-51.0); HEMOGLOBIN 10.9 GM/DL (13.0-17.0); LYMPHOCYTE # 0.3 TH/MM3 (1.0-4.8); MEAN CELL VOLUME 91.9 FL (80.0-100.0); MEAN CORPUSCULAR HEMOGLOBIN 31.9 PG (27.0-34.0); MEAN CORPUSCULAR HGB CONC 34.7 % (32.0-36.0); MEAN PLATELET VOLUME 7.3 FL (7.0-11.0); MONO % 5.9 % (0.0-8.0); MONOCYTE # 0.5 TH/MM3 (0-0.9); PLATELET COUNT 512 TH/MM3 (150-450); RED BLOOD COUNT 3.42 MIL/MM3 (4.50-5.90); RED CELL DISTRIBUTION WIDTH 13.4 % (11.6-17.2); WHITE BLOOD COUNT 8.8 TH/MM3 (4.0-11.0)
[2017-04-27 05:43] LABS: HEMO FLAGS AUTO DIFF
[2017-04-27 06:03] LABS: ANION GAP 8 MEQ/L (5-15); BICARBONATE 23.6 MEQ/L (21.0-32.0); BLOOD UREA NITROGEN 19 MG/DL (7-18); CHLORIDE 112 MEQ/L (98-107); CREATININE 0.72 MG/DL (0.60-1.30); GLOMERULAR FILTRATION RATE 104 ML/MIN (>89); GLUCOSE,RANDOM 205 MG/DL (74-106); POTASSIUM 4.3 MEQ/L (3.5-5.1); SODIUM (NA) 144 MEQ/L (136-145)
[2017-04-27 07:38] LABS: BANDS 16 % (0-6); LYMPHOCYTES 4 % (9-44); METAMYELOCYTES 7 % (0-1); MONOCYTES 2 % (0-8); NEUTROPHIL # MANUAL DIFF 8.3 TH/MM3 (1.8-7.7); PLATELET ESTIMATE SMEAR HIGH (NORMAL); PLATELET MORPHOLOGY NORMAL (NORMAL); POLYS (SEG NEUTROPHILS) 71 % (16-70); SCAN/DIFF FINAL DIFF MANUAL; WBC DIFF SAMPLE 100
[2017-04-27] MEDS: CHLORHEXIDINE 0.12% (ORAL KIT) 15 ML CUP MT ×2 (08:00→19:38)
[2017-04-27] MEDS: SODIUM CHLORIDE 0.9% FLUSH 10 ML FLUSH IV FLUSH ×2 (08:06→19:38)
[2017-04-27] MEDS: DOCUSATE SODIUM 50 MG/SENNA 8.6 MG TAB PO ×2 (08:06→19:38)
[2017-04-27] MEDS: POLYETHYLENE GLYCOL 17 GM PKG PO (08:06)
[2017-04-27] MEDS: methylPREDNISolone SOD SUCC 40 MG/1 ML VIAL IV PUSH ×2 (08:07→19:37)
[2017-04-27] MEDS: MEGESTROL ACETATE 40 MG TAB PO (08:07)
[2017-04-27] MEDS: FINASTERIDE 5 MG TAB PO (08:07)
[2017-04-27] MEDS: LISINOPRIL 10 MG TAB PO (08:08)
[2017-04-27] MEDS: LANSOPRAZOLE SOLUTAB 30 MG TAB NG (08:08)
[2017-04-27] MEDS: INSULIN DETEMIR 100 UNITS/ML VIAL SQ ×2 (08:09→20:45)
[2017-04-27] MEDS: RESP: BUDESONIDE 0.5 MG/2 ML NEB NEB ×2 (08:28→20:12)
[2017-04-27] MEDS: AZITHROMYCIN INJ 500 MG in SODIUM CHLOR 0.9% 250 ML INJ 250 ML IV (10:07)
[2017-04-27] MEDS: VANCOMYCIN 1,500 MG/NS 500 ML IV (13:31)
[2017-04-27] MEDS: PHARMACY ORDERED LAB (13:45)
[2017-04-27] MEDS: hydrALAZINE HCL 20 MG/ML VIAL IV PUSH (14:14)
[2017-04-27] MEDS: FUROSEMIDE 40 MG/4 ML VIAL IV PUSH (16:51)
[2017-04-27 17:30] LABS: ANION GAP 7 MEQ/L (5-15); BICARBONATE 25.4 MEQ/L (21.0-32.0); BLOOD UREA NITROGEN 21 MG/DL (7-18); CHLORIDE 114 MEQ/L (98-107); CREATININE 0.65 MG/DL (0.60-1.30); GLOMERULAR FILTRATION RATE 117 ML/MIN (>89); GLUCOSE,RANDOM 168 MG/DL (74-106); MAGNESIUM 2.6 MG/DL (1.5-2.5); PHOSPHORUS 2.8 MG/DL (2.5-4.9); POTASSIUM 4.3 MEQ/L (3.5-5.1); SODIUM (NA) 146 MEQ/L (136-145)
[2017-04-27] MEDS: TAMSULOSIN HCL 0.4 MG CAP PO (19:38)
[2017-04-27] MEDS: ENOXAPARIN SODIUM 40 MG/0.4 ML SYRINGE SQ (19:38)
[2017-04-28] MEDS: INSULIN ASPART SUPPLEMENTAL SCALE SQ ×7 (01:18→23:41)
[2017-04-28] MEDS: PROPOFOL 1000 MG/100 ML INJ 100 ML IV (03:30)
[2017-04-28] MEDS: PIPERACIL-TAZO 4.5 GM PREMIX 100 ML IV ×4 (05:13→23:41)
[2017-04-28] MEDS: guaiFENesin SOLUTION 200 MG/10 ML CUP PO ×3 (05:13→20:45)
[2017-04-28] MEDS: ARTIFICIAL TEARS OPTH SOLN 15 ML BTL EACH EYE ×3 (05:15→20:45)
[2017-04-28] MEDS: LEVOTHYROXINE SODIUM 25 MCG TAB PO (05:15)
[2017-04-28 06:46] LABS: AUTOMATED NEUTROPHIL # 7.2 TH/MM3 (1.8-7.7); BASOPHIL % 0.2 % (0.0-2.0); HEMATOCRIT 34.9 % (39.0-51.0); LYMPH % 7.6 % (9.0-44.0); LYMPHOCYTE # 0.6 TH/MM3 (1.0-4.8); MEAN CORPUSCULAR HEMOGLOBIN 32.4 PG (27.0-34.0); MEAN CORPUSCULAR HGB CONC 34.5 % (32.0-36.0); MEAN PLATELET VOLUME 7.3 FL (7.0-11.0); MONO % 6.2 % (0.0-8.0); MONOCYTE # 0.5 TH/MM3 (0-0.9); PLATELET COUNT 600 TH/MM3 (150-450); RED BLOOD COUNT 3.71 MIL/MM3 (4.50-5.90); RED CELL DISTRIBUTION WIDTH 13.9 % (11.6-17.2); WHITE BLOOD COUNT 8.3 TH/MM3 (4.0-11.0)
[2017-04-28 06:58] LABS: HEMO FLAGS AUTO DIFF
[2017-04-28 07:11] LABS: ANION GAP 6 MEQ/L (5-15); BICARBONATE 27.8 MEQ/L (21.0-32.0); BLOOD UREA NITROGEN 26 MG/DL (7-18); CALCIUM 7.8 MG/DL (8.5-10.1); CHLORIDE 111 MEQ/L (98-107); CREATININE 0.77 MG/DL (0.60-1.30); GLOMERULAR FILTRATION RATE 96 ML/MIN (>89); GLUCOSE,RANDOM 204 MG/DL (74-106); POTASSIUM 4.2 MEQ/L (3.5-5.1); SODIUM (NA) 145 MEQ/L (136-145)
[2017-04-28 07:51] LABS: C PNEUMO IGA <1:16 (<1:16); C PNEUMO IGM <1:10 (<1:10); C PNEUMO INTERPRETATION PAST INFECTION
[2017-04-28] MEDS: RESP: BUDESONIDE 0.5 MG/2 ML NEB NEB ×2 (07:56→20:49)
[2017-04-28 08:20] LABS: BANDS 11 % (0-6); LYMPHOCYTES 7 % (9-44); METAMYELOCYTES 3 % (0-1); MONOCYTES 5 % (0-8); NEUTROPHIL # MANUAL DIFF 7.3 TH/MM3 (1.8-7.7); PLATELET ESTIMATE SMEAR HIGH (NORMAL); PLATELET MORPHOLOGY NORMAL (NORMAL); POLYS (SEG NEUTROPHILS) 74 % (16-70); TOXIC GRANULATION 2+ (NORMAL); TOXIC VACUOLATION PRESENT (NONE SEEN); WBC DIFF SAMPLE 100
[2017-04-28 08:21] LABS: SCAN/DIFF FINAL DIFF MANUAL
[2017-04-28] MEDS: POLYETHYLENE GLYCOL 17 GM PKG PO ×2 (08:26→20:25)
[2017-04-28] MEDS: DOCUSATE SODIUM 50 MG/SENNA 8.6 MG TAB PO ×2 (08:26→20:25)
[2017-04-28] MEDS: FINASTERIDE 5 MG TAB PO (08:34)
[2017-04-28] MEDS: MEGESTROL ACETATE 40 MG TAB PO (08:34)
[2017-04-28] MEDS: FUROSEMIDE 40 MG/4 ML VIAL IV PUSH ×2 (08:34→18:29)
[2017-04-28] MEDS: methylPREDNISolone SOD SUCC 40 MG/1 ML VIAL IV PUSH ×2 (08:34→20:45)
[2017-04-28] MEDS: INSULIN DETEMIR 100 UNITS/ML VIAL SQ ×2 (08:34→20:45)
[2017-04-28] MEDS: LANSOPRAZOLE SOLUTAB 30 MG TAB NG (08:34)
[2017-04-28] MEDS: LISINOPRIL 10 MG TAB PO (08:35)
[2017-04-28] MEDS: CHLORHEXIDINE 0.12% (ORAL KIT) 15 ML CUP MT ×2 (08:35→20:00)
[2017-04-28] MEDS: SODIUM CHLORIDE 0.9% FLUSH 10 ML FLUSH IV FLUSH ×2 (08:35→20:45)
[2017-04-28] MEDS: AZITHROMYCIN INJ 500 MG in SODIUM CHLOR 0.9% 250 ML INJ 250 ML IV (11:33)
[2017-04-28] MEDS: PHARMACY ORDERED LAB (13:45)
[2017-04-28] MEDS ORDERED: ACETAMINOPHEN 650 MG/20.3 ML UDC G-TUBE (13:45)
[2017-04-28] MEDS: VANCOMYCIN 1,500 MG/NS 500 ML IV (14:09)
[2017-04-28 15:17] LABS: VANCOMYCIN TROUGH 12.5 MCG/ML (5.0-10.0)
[2017-04-28] MEDS: RESP: ALBUTEROL 2.5 MG/IPRATROPIUM 0.5 MG NEB (SCH) NEB ×2 (16:16→20:49)
[2017-04-28] MEDS: ENOXAPARIN SODIUM 40 MG/0.4 ML SYRINGE SQ (20:44)
[2017-04-28] MEDS: TAMSULOSIN HCL 0.4 MG CAP PO (20:44)
[2017-04-29] MEDS: RESP: ALBUTEROL 2.5 MG/IPRATROPIUM 0.5 MG NEB (SCH) NEB ×4 (03:14→20:47)
[2017-04-29] MEDS: INSULIN ASPART SUPPLEMENTAL SCALE SQ ×5 (04:00→20:00)
[2017-04-29] MEDS: PIPERACIL-TAZO 4.5 GM PREMIX 100 ML IV ×3 (04:26→16:56)
[2017-04-29] MEDS: ARTIFICIAL TEARS OPTH SOLN 15 ML BTL EACH EYE ×3 (06:00→21:14)
[2017-04-29] MEDS: guaiFENesin SOLUTION 200 MG/10 ML CUP PO ×3 (06:00→21:14)
[2017-04-29] MEDS: LEVOTHYROXINE SODIUM 25 MCG TAB PO (06:00)
[2017-04-29] MEDS: RESP: BUDESONIDE 0.5 MG/2 ML NEB NEB ×2 (08:08→20:47)
[2017-04-29 08:22] LABS: HEMATOCRIT 35.2 % (39.0-51.0); HEMOGLOBIN 12.1 GM/DL (13.0-17.0); MEAN CELL VOLUME 92.8 FL (80.0-100.0); MEAN CORPUSCULAR HEMOGLOBIN 32.1 PG (27.0-34.0); MEAN CORPUSCULAR HGB CONC 34.5 % (32.0-36.0); MEAN PLATELET VOLUME 7.2 FL (7.0-11.0); PLATELET COUNT 611 TH/MM3 (150-450); RED BLOOD COUNT 3.79 MIL/MM3 (4.50-5.90); RED CELL DISTRIBUTION WIDTH 13.7 % (11.6-17.2); REVIEW FLAG FINAL
[2017-04-29 08:48] LABS: ANION GAP 7 MEQ/L (5-15); BLOOD UREA NITROGEN 29 MG/DL (7-18); CALCIUM 7.7 MG/DL (8.5-10.1); CHLORIDE 109 MEQ/L (98-107); CREATININE 0.74 MG/DL (0.60-1.30); GLOMERULAR FILTRATION RATE 101 ML/MIN (>89); GLUCOSE,RANDOM 207 MG/DL (74-106); MAGNESIUM 2.6 MG/DL (1.5-2.5); PHOSPHORUS 3.6 MG/DL (2.5-4.9); POTASSIUM 3.5 MEQ/L (3.5-5.1); SODIUM (NA) 146 MEQ/L (136-145)
[2017-04-29] MEDS: methylPREDNISolone SOD SUCC 40 MG/1 ML VIAL IV PUSH ×2 (08:52→21:13)
[2017-04-29] MEDS: MEGESTROL ACETATE 40 MG TAB PO (08:52)
[2017-04-29] MEDS: FUROSEMIDE 40 MG/4 ML VIAL IV PUSH (08:52)
[2017-04-29] MEDS: FINASTERIDE 5 MG TAB PO (08:52)
[2017-04-29] MEDS: LISINOPRIL 10 MG TAB PO (08:52)
[2017-04-29] MEDS: POLYETHYLENE GLYCOL 17 GM PKG PO ×2 (08:53→21:00)
[2017-04-29] MEDS: INSULIN DETEMIR 100 UNITS/ML VIAL SQ (08:53)
[2017-04-29] MEDS: DOCUSATE SODIUM 50 MG/SENNA 8.6 MG TAB PO ×2 (08:53→21:00)
[2017-04-29] MEDS: SODIUM CHLORIDE 0.9% FLUSH 10 ML FLUSH IV FLUSH ×2 (08:54→21:12)
[2017-04-29] MEDS: LANSOPRAZOLE SOLUTAB 30 MG TAB NG (08:54)
[2017-04-29] MEDS: CHLORHEXIDINE 0.12% (ORAL KIT) 15 ML CUP MT ×2 (08:54→20:00)
[2017-04-29 11:56] LABS: MYCOPLASMA PNEUMONIAE IGG Equivocal (Negative); MYCOPLASMA PNEUMONIAE IGM Negative (Negative)
[2017-04-29] MEDS: AZITHROMYCIN INJ 500 MG in SODIUM CHLOR 0.9% 250 ML INJ 250 ML IV (12:26)
[2017-04-29] MEDS: VANCOMYCIN INJ 1,750 MG in SODIUM CHLORID 0.9% 500 ML INJ 500 ML IV (15:26)
[2017-04-29] MEDS: PETROLATUM 30 GM TUBE TOPICAL (17:42)
[2017-04-29] MEDS: FAMOTIDINE 20 MG/2 ML VIAL IV PUSH (18:06)
[2017-04-29] MEDS: FUROSEMIDE 20 MG/2 ML VIAL IV PUSH (18:06)
[2017-04-29] MEDS: TAMSULOSIN HCL 0.4 MG CAP PO (21:00)
[2017-04-29] MEDS: ENOXAPARIN SODIUM 40 MG/0.4 ML SYRINGE SQ (21:12)
[2017-04-30] MEDS: PIPERACIL-TAZO 4.5 GM PREMIX 100 ML IV ×5 (01:12→22:20)
[2017-04-30] MEDS: guaiFENesin SOLUTION 200 MG/10 ML CUP PO ×3 (01:14→20:12)
[2017-04-30] MEDS: LEVOTHYROXINE SODIUM 25 MCG TAB PO (01:14)
[2017-04-30] MEDS: INSULIN ASPART SUPPLEMENTAL SCALE SQ ×6 (04:00→20:13)
[2017-04-30] MEDS: RESP: ALBUTEROL 2.5 MG/IPRATROPIUM 0.5 MG NEB (SCH) NEB ×4 (04:41→20:36)
[2017-04-30 05:12] LABS: HEMATOCRIT 37.7 % (39.0-51.0); MEAN CELL VOLUME 93.2 FL (80.0-100.0); MEAN CORPUSCULAR HEMOGLOBIN 32.2 PG (27.0-34.0); MEAN CORPUSCULAR HGB CONC 34.5 % (32.0-36.0); MEAN PLATELET VOLUME 7.1 FL (7.0-11.0); PLATELET COUNT 563 TH/MM3 (150-450); RED BLOOD COUNT 4.05 MIL/MM3 (4.50-5.90); RED CELL DISTRIBUTION WIDTH 13.2 % (11.6-17.2); REVIEW FLAG FINAL; WHITE BLOOD COUNT 14.9 TH/MM3 (4.0-11.0)
[2017-04-30 05:36] LABS: ANION GAP 7 MEQ/L (5-15); BICARBONATE 30.6 MEQ/L (21.0-32.0); CALCIUM 8.4 MG/DL (8.5-10.1); CHLORIDE 108 MEQ/L (98-107); CREATININE 0.73 MG/DL (0.60-1.30); GLOMERULAR FILTRATION RATE 102 ML/MIN (>89); GLUCOSE,RANDOM 149 MG/DL (74-106); MAGNESIUM 2.7 MG/DL (1.5-2.5); PHOSPHORUS 3.8 MG/DL (2.5-4.9); POTASSIUM 3.7 MEQ/L (3.5-5.1); SODIUM (NA) 146 MEQ/L (136-145)
[2017-04-30 05:44] LABS: BLOOD UREA NITROGEN 25 MG/DL (7-18)
[2017-04-30] MEDS: ARTIFICIAL TEARS OPTH SOLN 15 ML BTL EACH EYE ×2 (06:00→13:40)
[2017-04-30] MEDS: FAMOTIDINE 20 MG/2 ML VIAL IV PUSH ×2 (06:09→16:58)
[2017-04-30] MEDS: RESP: BUDESONIDE 0.5 MG/2 ML NEB NEB ×2 (07:59→20:36)
[2017-04-30] MEDS: CHLORHEXIDINE 0.12% (ORAL KIT) 15 ML CUP MT ×2 (08:00→20:00)
[2017-04-30] MEDS: SODIUM CHLORIDE 0.9% FLUSH 10 ML FLUSH IV FLUSH ×2 (09:00→20:13)
[2017-04-30] MEDS: MEGESTROL ACETATE 40 MG TAB PO (09:00)
[2017-04-30] MEDS: LISINOPRIL 10 MG TAB PO (09:00)
[2017-04-30] MEDS: FINASTERIDE 5 MG TAB PO (09:00)
[2017-04-30] MEDS: DOCUSATE SODIUM 50 MG/SENNA 8.6 MG TAB PO ×2 (09:00→20:11)
[2017-04-30] MEDS: POLYETHYLENE GLYCOL 17 GM PKG PO ×2 (09:00→20:12)
[2017-04-30] MEDS: FUROSEMIDE 20 MG/2 ML VIAL IV PUSH ×2 (09:25→16:59)
[2017-04-30] MEDS: methylPREDNISolone SOD SUCC 40 MG/1 ML VIAL IV PUSH ×2 (09:26→20:11)
[2017-04-30] MEDS: AZITHROMYCIN INJ 500 MG in SODIUM CHLOR 0.9% 250 ML INJ 250 ML IV (11:08)
[2017-04-30] MEDS: VANCOMYCIN INJ 1,750 MG in SODIUM CHLORID 0.9% 500 ML INJ 500 ML IV (13:39)
[2017-04-30] MEDS ORDERED: DEXTROSE 50% IN WATER 50 ML VIAL(D50) IV PUSH (16:00)
[2017-04-30] MEDS ORDERED: GLUCAGON 1 MG/ML VIAL OTHER (16:00)
[2017-04-30] MEDS: ENOXAPARIN SODIUM 40 MG/0.4 ML SYRINGE SQ (20:12)
[2017-04-30] MEDS: TAMSULOSIN HCL 0.4 MG CAP PO (20:12)
[2017-05-01] MEDS: PIPERACIL-TAZO 4.5 GM PREMIX 100 ML IV ×2 (04:09→11:00)
[2017-05-01] MEDS: FAMOTIDINE 20 MG/2 ML VIAL IV PUSH (04:09)
[2017-05-01] MEDS: LEVOTHYROXINE SODIUM 25 MCG TAB PO (04:09)
[2017-05-01] MEDS: guaiFENesin SOLUTION 200 MG/10 ML CUP PO ×3 (04:10→21:55)
[2017-05-01] MEDS: RESP: ALBUTEROL 2.5 MG/IPRATROPIUM 0.5 MG NEB (SCH) NEB ×4 (04:57→21:29)
[2017-05-01 07:26] LABS: BASOPHIL % 0.1 % (0.0-2.0); EOSINOPHIL % 0.1 % (0.0-4.0); HEMATOCRIT 34.5 % (39.0-51.0); HEMO FLAGS DIFF FINAL; HEMOGLOBIN 12.1 GM/DL (13.0-17.0); LYMPHOCYTE # 0.5 TH/MM3 (1.0-4.8); MEAN CELL VOLUME 93.8 FL (80.0-100.0); MEAN CORPUSCULAR HEMOGLOBIN 32.9 PG (27.0-34.0); MEAN CORPUSCULAR HGB CONC 35.1 % (32.0-36.0); MEAN PLATELET VOLUME 7.3 FL (7.0-11.0); MONO % 5.8 % (0.0-8.0); MONOCYTE # 0.5 TH/MM3 (0-0.9); PLATELET COUNT 493 TH/MM3 (150-450); RED BLOOD COUNT 3.68 MIL/MM3 (4.50-5.90); RED CELL DISTRIBUTION WIDTH 13.4 % (11.6-17.2)
[2017-05-01 07:35] LABS: ANION GAP 6 MEQ/L (5-15); BICARBONATE 32.5 MEQ/L (21.0-32.0); BLOOD UREA NITROGEN 24 MG/DL (7-18); CALCIUM 8.1 MG/DL (8.5-10.1); CHLORIDE 108 MEQ/L (98-107); CREATININE 0.69 MG/DL (0.60-1.30); GLOMERULAR FILTRATION RATE 109 ML/MIN (>89); GLUCOSE,RANDOM 210 MG/DL (74-106); POTASSIUM 3.5 MEQ/L (3.5-5.1); SODIUM (NA) 146 MEQ/L (136-145)
[2017-05-01] MEDS: RESP: BUDESONIDE 0.5 MG/2 ML NEB NEB ×2 (07:50→20:00)
[2017-05-01] MEDS: INSULIN ASPART SUPPLEMENTAL SCALE SQ ×4 (08:00→22:06)
[2017-05-01] MEDS: CHLORHEXIDINE 0.12% (ORAL KIT) 15 ML CUP MT ×2 (08:00→20:00)
[2017-05-01] MEDS: methylPREDNISolone SOD SUCC 40 MG/1 ML VIAL IV PUSH (08:34)
[2017-05-01] MEDS: FINASTERIDE 5 MG TAB PO (08:35)
[2017-05-01] MEDS: LISINOPRIL 10 MG TAB PO (08:35)
[2017-05-01] MEDS: MEGESTROL ACETATE 40 MG TAB PO (09:00)
[2017-05-01] MEDS: POLYETHYLENE GLYCOL 17 GM PKG PO ×2 (09:00→21:00)
[2017-05-01] MEDS: FUROSEMIDE 20 MG/2 ML VIAL IV PUSH (09:00)
[2017-05-01] MEDS: SODIUM CHLORIDE 0.9% FLUSH 10 ML FLUSH IV FLUSH ×2 (09:00→21:56)
[2017-05-01] MEDS: DOCUSATE SODIUM 50 MG/SENNA 8.6 MG TAB PO ×2 (09:00→21:55)
[2017-05-01] MEDS: AZITHROMYCIN INJ 500 MG in SODIUM CHLOR 0.9% 250 ML INJ 250 ML IV (11:00)
[2017-05-01] MEDS: VANCOMYCIN INJ 1,750 MG in SODIUM CHLORID 0.9% 500 ML INJ 500 ML IV (13:33)
[2017-05-01] MEDS: metFORMIN HCL 500 MG TAB PO (18:00)
[2017-05-01] MEDS: predniSONE 10 MG TAB PO (21:55)
[2017-05-01] MEDS: ENOXAPARIN SODIUM 40 MG/0.4 ML SYRINGE SQ (21:55)
[2017-05-01] MEDS: FAMOTIDINE 20 MG TAB PO (21:55)
[2017-05-01] MEDS: TAMSULOSIN HCL 0.4 MG CAP PO (22:03)
[2017-05-02] MEDS: RESP: ALBUTEROL 2.5 MG/IPRATROPIUM 0.5 MG NEB (SCH) NEB ×2 (04:05→09:25)
[2017-05-02] MEDS: LEVOTHYROXINE SODIUM 25 MCG TAB PO (05:40)
[2017-05-02] MEDS: guaiFENesin SOLUTION 200 MG/10 ML CUP PO ×4 (05:40→21:42)
[2017-05-02] MEDS: CHLORHEXIDINE 0.12% (ORAL KIT) 15 ML CUP MT ×2 (08:00→20:00)
[2017-05-02] MEDS: POLYETHYLENE GLYCOL 17 GM PKG PO ×2 (09:00→21:00)
[2017-05-02 09:08] LABS: BASOPHIL % 0.1 % (0.0-2.0); EOSINOPHIL % 0.3 % (0.0-4.0); HEMATOCRIT 34.4 % (39.0-51.0); HEMO FLAGS DIFF FINAL; LYMPH % 8.2 % (9.0-44.0); LYMPHOCYTE # 0.6 TH/MM3 (1.0-4.8); MEAN CORPUSCULAR HEMOGLOBIN 32.8 PG (27.0-34.0); MEAN CORPUSCULAR HGB CONC 34.9 % (32.0-36.0); MEAN PLATELET VOLUME 7.7 FL (7.0-11.0); MONO % 8.3 % (0.0-8.0); MONOCYTE # 0.6 TH/MM3 (0-0.9); NEUT % 83.1 % (16.0-70.0); PLATELET COUNT 455 TH/MM3 (150-450); RED BLOOD COUNT 3.66 MIL/MM3 (4.50-5.90); RED CELL DISTRIBUTION WIDTH 13.3 % (11.6-17.2); WHITE BLOOD COUNT 7.2 TH/MM3 (4.0-11.0)
[2017-05-02 09:20] LABS: ANION GAP 6 MEQ/L (5-15); BICARBONATE 26.8 MEQ/L (21.0-32.0); BLOOD UREA NITROGEN 20 MG/DL (7-18); CALCIUM 8.2 MG/DL (8.5-10.1); CHLORIDE 110 MEQ/L (98-107); CREATININE 0.62 MG/DL (0.60-1.30); GLOMERULAR FILTRATION RATE 124 ML/MIN (>89); GLUCOSE,RANDOM 182 MG/DL (74-106); POTASSIUM 3.3 MEQ/L (3.5-5.1); SODIUM (NA) 143 MEQ/L (136-145)
[2017-05-02] MEDS: RESP: BUDESONIDE 0.5 MG/2 ML NEB NEB ×2 (09:23→20:00)
[2017-05-02] MEDS: LISINOPRIL 10 MG TAB PO (09:28)
[2017-05-02] MEDS: AZITHROMYCIN 250 MG TAB PO (09:28)
[2017-05-02] MEDS: FINASTERIDE 5 MG TAB PO (09:28)
[2017-05-02] MEDS: metFORMIN HCL 500 MG TAB PO ×2 (09:29→18:09)
[2017-05-02] MEDS: FUROSEMIDE 20 MG TAB PO (09:29)
[2017-05-02] MEDS: DOCUSATE SODIUM 50 MG/SENNA 8.6 MG TAB PO ×2 (09:29→21:00)
[2017-05-02] MEDS: predniSONE 10 MG TAB PO ×2 (09:29→21:17)
[2017-05-02] MEDS: INSULIN ASPART SUPPLEMENTAL SCALE SQ ×4 (09:37→21:19)
[2017-05-02] MEDS: SODIUM CHLORIDE 0.9% FLUSH 10 ML FLUSH IV FLUSH ×2 (09:37→21:17)
[2017-05-02] MEDS: MEGESTROL ACETATE 40 MG TAB PO (13:18)
[2017-05-02] MEDS: POTASSIUM CHLORIDE 20 MEQ CONTROLLED RELEASE TAB PO ×2 (13:19→21:18)
[2017-05-02] MEDS ORDERED: PHARMACY ORDERED LAB (13:45)
[2017-05-02] MEDS: RESP: ALBUTEROL 2.5 MG/3 ML NEB (PRN) NEB (18:30)
[2017-05-02] MEDS: ENOXAPARIN SODIUM 40 MG/0.4 ML SYRINGE SQ (21:17)
[2017-05-02] MEDS: FAMOTIDINE 20 MG TAB PO (21:18)
[2017-05-02] MEDS: TAMSULOSIN HCL 0.4 MG CAP PO (21:18)
[2017-05-03] MEDS: guaiFENesin SOLUTION 200 MG/10 ML CUP PO ×3 (06:00→20:58)
[2017-05-03] MEDS: LEVOTHYROXINE SODIUM 25 MCG TAB PO (06:39)
[2017-05-03 07:25] LABS: AUTOMATED NEUTROPHIL # 4.7 TH/MM3 (1.8-7.7); BASOPHIL % 0.3 % (0.0-2.0); EOSINOPHIL % 0.3 % (0.0-4.0); HEMATOCRIT 33.8 % (39.0-51.0); HEMO FLAGS DIFF FINAL; HEMOGLOBIN 11.3 GM/DL (13.0-17.0); LYMPH % 10.9 % (9.0-44.0); LYMPHOCYTE # 0.6 TH/MM3 (1.0-4.8); MEAN CELL VOLUME 93.4 FL (80.0-100.0); MEAN CORPUSCULAR HEMOGLOBIN 31.2 PG (27.0-34.0); MEAN CORPUSCULAR HGB CONC 33.4 % (32.0-36.0); MEAN PLATELET VOLUME 7.7 FL (7.0-11.0); MONO % 8.4 % (0.0-8.0); MONOCYTE # 0.5 TH/MM3 (0-0.9); NEUT % 80.1 % (16.0-70.0); PLATELET COUNT 411 TH/MM3 (150-450); RED BLOOD COUNT 3.62 MIL/MM3 (4.50-5.90); WHITE BLOOD COUNT 5.9 TH/MM3 (4.0-11.0)
[2017-05-03 07:48] LABS: ANION GAP 5 MEQ/L (5-15); BLOOD UREA NITROGEN 22 MG/DL (7-18); CALCIUM 7.9 MG/DL (8.5-10.1); CHLORIDE 112 MEQ/L (98-107); CREATININE 0.62 MG/DL (0.60-1.30); GLOMERULAR FILTRATION RATE 124 ML/MIN (>89); GLUCOSE,RANDOM 169 MG/DL (74-106); POTASSIUM 3.6 MEQ/L (3.5-5.1); SODIUM (NA) 144 MEQ/L (136-145)
[2017-05-03 07:49] LABS: CALCIUM-PROTEIN CORRECTED 8.7 MG/DL (8.5-10.1); TOTAL PROTEIN 5.7 GM/DL (6.4-8.2)
[2017-05-03] MEDS: CHLORHEXIDINE 0.12% (ORAL KIT) 15 ML CUP MT ×2 (08:00→20:00)
[2017-05-03] MEDS: INSULIN ASPART SUPPLEMENTAL SCALE SQ ×4 (08:00→20:58)
[2017-05-03] MEDS: RESP: BUDESONIDE 0.5 MG/2 ML NEB NEB ×2 (08:00→20:54)
[2017-05-03] MEDS: predniSONE 10 MG TAB PO ×2 (08:25→20:57)
[2017-05-03] MEDS: AZITHROMYCIN 250 MG TAB PO (08:25)
[2017-05-03] MEDS: POTASSIUM CHLORIDE 20 MEQ CONTROLLED RELEASE TAB PO ×2 (08:25→20:57)
[2017-05-03] MEDS: DOCUSATE SODIUM 50 MG/SENNA 8.6 MG TAB PO ×2 (08:26→20:58)
[2017-05-03] MEDS: LISINOPRIL 10 MG TAB PO (08:26)
[2017-05-03] MEDS: metFORMIN HCL 500 MG TAB PO ×2 (08:26→17:36)
[2017-05-03] MEDS: FINASTERIDE 5 MG TAB PO (08:26)
[2017-05-03] MEDS: FUROSEMIDE 20 MG TAB PO (08:26)
[2017-05-03] MEDS: POLYETHYLENE GLYCOL 17 GM PKG PO ×2 (09:00→20:57)
[2017-05-03] MEDS: SODIUM CHLORIDE 0.9% FLUSH 10 ML FLUSH IV FLUSH ×2 (09:00→20:56)
[2017-05-03] MEDS: MEGESTROL ACETATE 40 MG TAB PO (13:50)
[2017-05-03] MEDS: RESP: ALBUTEROL 2.5 MG/IPRATROPIUM 0.5 MG NEB (SCH) NEB ×2 (15:17→20:54)
[2017-05-03] MEDS: NYSTATIN/TRIAMCINOLONE CREAM 15 GM TOPICAL ×2 (17:35→20:58)
[2017-05-03] MEDS: ENOXAPARIN SODIUM 40 MG/0.4 ML SYRINGE SQ (20:56)
[2017-05-03] MEDS: TAMSULOSIN HCL 0.4 MG CAP PO (20:57)
[2017-05-03] MEDS: FAMOTIDINE 20 MG TAB PO (20:58)
[2017-05-04] MEDS: guaiFENesin SOLUTION 200 MG/10 ML CUP PO ×2 (06:00→12:55)
[2017-05-04] MEDS: LEVOTHYROXINE SODIUM 25 MCG TAB PO (06:44)
[2017-05-04] MEDS: RESP: BUDESONIDE 0.5 MG/2 ML NEB NEB (07:40)
[2017-05-04] MEDS: RESP: ALBUTEROL 2.5 MG/IPRATROPIUM 0.5 MG NEB (SCH) NEB (07:41)
[2017-05-04] MEDS: CHLORHEXIDINE 0.12% (ORAL KIT) 15 ML CUP MT (08:00)
[2017-05-04] MEDS: DOCUSATE SODIUM 50 MG/SENNA 8.6 MG TAB PO (09:00)
[2017-05-04] MEDS: POLYETHYLENE GLYCOL 17 GM PKG PO (09:00)
[2017-05-04 09:03] LABS: BASOPHIL % 0.3 % (0.0-2.0); EOSINOPHIL % 0.4 % (0.0-4.0); HEMATOCRIT 35.7 % (39.0-51.0); HEMO FLAGS DIFF FINAL; HEMOGLOBIN 12.1 GM/DL (13.0-17.0); LYMPH % 8.3 % (9.0-44.0); LYMPHOCYTE # 0.5 TH/MM3 (1.0-4.8); MEAN CELL VOLUME 94.3 FL (80.0-100.0); MEAN CORPUSCULAR HEMOGLOBIN 31.9 PG (27.0-34.0); MEAN CORPUSCULAR HGB CONC 33.8 % (32.0-36.0); MONO % 8.3 % (0.0-8.0); MONOCYTE # 0.5 TH/MM3 (0-0.9); NEUT % 82.7 % (16.0-70.0); PLATELET COUNT 398 TH/MM3 (150-450); RED BLOOD COUNT 3.79 MIL/MM3 (4.50-5.90); RED CELL DISTRIBUTION WIDTH 13.4 % (11.6-17.2)
[2017-05-04] MEDS: AZITHROMYCIN 250 MG TAB PO (09:18)
[2017-05-04] MEDS: FUROSEMIDE 20 MG TAB PO (09:18)
[2017-05-04] MEDS: FINASTERIDE 5 MG TAB PO (09:19)
[2017-05-04] MEDS: MEGESTROL ACETATE 40 MG TAB PO (09:19)
[2017-05-04] MEDS: metFORMIN HCL 500 MG TAB PO (09:19)
[2017-05-04] MEDS: POTASSIUM CHLORIDE 20 MEQ CONTROLLED RELEASE TAB PO (09:19)
[2017-05-04] MEDS: INSULIN ASPART SUPPLEMENTAL SCALE SQ ×2 (09:20→11:40)
[2017-05-04] MEDS: SODIUM CHLORIDE 0.9% FLUSH 10 ML FLUSH IV FLUSH (09:20)
[2017-05-04] MEDS: predniSONE 10 MG TAB PO (09:20)
[2017-05-04] MEDS: LISINOPRIL 10 MG TAB PO (09:20)
[2017-05-04] MEDS: NYSTATIN/TRIAMCINOLONE CREAM 15 GM TOPICAL (09:21)
[2017-05-04 09:29] LABS: ANION GAP 7 MEQ/L (5-15); BLOOD UREA NITROGEN 21 MG/DL (7-18); CALCIUM 8.5 MG/DL (8.5-10.1); CHLORIDE 111 MEQ/L (98-107); CREATININE 0.64 MG/DL (0.60-1.30); GLOMERULAR FILTRATION RATE 119 ML/MIN (>89); GLUCOSE,RANDOM 162 MG/DL (74-106); POTASSIUM 3.7 MEQ/L (3.5-5.1); SODIUM (NA) 142 MEQ/L (136-145)
== END 2017-05-04 15:28 | DRG 725 ==
LOC: N06A 04-22 17:25 → N05B 05-01 19:48 → N05A 05-01 19:50 → N03B 04-23 19:27 → NEPE 16:58 → NEDA 19:01 → NEPGCP 22:43
PROC: 0T9B70Z Drainage of Bladder with Drainage Device, Via Natural or Artificial Opening (ICD-10-PCS; principal; 2017-04-19)
PROC: 5A1955Z Respiratory Ventilation, Greater than 96 Consecutive Hours (ICD-10-PCS; 2017-04-24)
PROC: 0BH17EZ Insertion of Endotracheal Airway into Trachea, Via Natural or Artificial Opening (ICD-10-PCS; 2017-04-24)
DX: N40.1 Benign prostatic hyperplasia with lower urinary tract symptoms (principal); E43 Unspecified severe protein-calorie malnutrition; J18.9 Pneumonia, unspecified organism; J90 Pleural effusion, not elsewhere classified; J44.0 Chronic obstructive pulmonary disease with (acute) lower respiratory infection; Z99.11 Dependence on respirator [ventilator] status; J96.01 Acute respiratory failure with hypoxia; J96.02 Acute respiratory failure with hypercapnia; E22.2 Syndrome of inappropriate secretion of antidiuretic hormone; E11.22 Type 2 diabetes mellitus with diabetic chronic kidney disease; R00.1 Bradycardia, unspecified; N39.0 Urinary tract infection, site not specified; J98.11 Atelectasis; N13.8 Other obstructive and reflux uropathy; D64.9 Anemia, unspecified; R31.0 Gross hematuria; I12.9 Hypertensive chronic kidney disease with stage 1 through stage 4 chronic kidney disease, or unspecified chronic kidney disease; N18.9 Chronic kidney disease, unspecified; R33.8 Other retention of urine; R39.11 Hesitancy of micturition; Z85.51 Personal history of malignant neoplasm of bladder; Z87.891 Personal history of nicotine dependence; E03.9 Hypothyroidism, unspecified; Z90.49 Acquired absence of other specified parts of digestive tract; Z86.73 Personal history of transient ischemic attack (TIA), and cerebral infarction without residual deficits; Y95 Nosocomial condition; E83.39 Other disorders of phosphorus metabolism; E87.6 Hypokalemia; Z79.84 Long term (current) use of oral hypoglycemic drugs
CPT/HCPCS: 36600; 51702; 71045; 71250; 76775; 80048; 80053; 80061; 80202; 81001; 82140; 82150; 82533; 82570; 82805; 82948; 83605; 83690; 83735; 83880; 83930; 83935; 84100; 84134; 84155; 84300; 84443; 84484; 84550; 85007; 85025; 85027; 86631; 86631-59; 86632; 86738; 86738-59; 87040; 87070; 87205; 87449; 87641; 87804; 87804-59; 92526-GN; 92610-GN; 93005; 93306; 94002; 94003; 94150; 94640; 94664; 94667; 96125-GN; 96374; 97110-GP; 97116-GP; 97162-GP; 97164-GP; 97166-GO; 97530-GP; 99285-25